=== PATIENT | female | born 1955 | race Caucasian/White ===

== ENCOUNTER 2024-02-21 00:46 | Emergency (ER) | payer MEDICAID ==
[~2024-02-21] VITALS: Ht 172.7 cm; Wt 63.5 kg
[2024-02-21] MEDS ORDERED: IV NS 0.9% 1,000 ML BAG IV ONE (01:00)
[2024-02-21 01:21] LABS: BASOPHILS # (AUTO) 0.1 K/uL (0.0-0.2); BASOPHILS % (AUTO) 0.4 % (0.0-2.0); EOSINOPHILS % (AUTO) 0.3 % (0.0-6.0); HEMATOCRIT 33 % (33-45); LYMPHOCYTES # (AUTO) 0.7 K/uL (0.8-4.8); LYMPHOCYTES % (AUTO) 4.3 % (20.0-44.0); MEAN CORPUSCULAR HEMOGLOBIN 33 PG (26.0-33.0); MEAN CORPUSCULAR HGB CONC 31 g/dl (31.0-36.0); MEAN CORPUSCULAR VOLUME 107 fL (82-100); MONOCYTES # (AUTO) 1.3 K/uL (0.1-1.30); MONOCYTES % (AUTO) 8.3 % (2.0-12.0); NEUTROPHILS # (AUTO) 13.6 K/uL (1.8-8.9); NEUTROPHILS % (AUTO) 86.7 % (43.0-81.0); PLATELET COUNT (AUTO) 355 K/uL (150-450); RED BLOOD CELL COUNT(AUTO) 3.04 MIL/uL (4.0-5.2); RED CELL DISTRIBUTION WIDTH 19.9 % (11.5-15.0); WHITE BLOOD COUNT (AUTO) 15.7 K/uL (4.3-11.0)
[2024-02-21 01:36] LABS: CALCIUM, SERUM 9.5 mg/dL (8.5-10.1); CARBON DIOXIDE 19 mmol/L (21-32); CHLORIDE 95 mmol/L (98-107); GLUCOSE 100 mg/dL (74-106); SODIUM SERUM 134 mmol/L (136-145)
[2024-02-21 01:51] LABS: ALANINE AMINOTRANSFERASE 91 U/L (12-78); ASPARTATE AMINOTRANSFERASE 204 U/L (15-37); BILIRUBIN,DIRECT 2.2 mg/dL (0.0-0.2); BILIRUBIN,TOTAL 3.2 mg/dL (0.2-1.0); NT-PRO BNP 4762 pg/mL (0-125); TOTAL PROTEIN, SERUM 7.3 g/dL (6.4-8.2)
[2024-02-21 02:00] LABS: ALKALINE PHOSPHATASE 2205 U/L (46-116); CREATININE 7.6 mg/dL (0.6-1.3); LIPASE 420 U/L (16-77); POTASSIUM 7.2 mmol/L (3.5-5.1); UREA NITROGEN, BLOOD 92 mg/dL (7-18)
[2024-02-21 02:02] VITALS: BP 79/29; TEMP 98; O2SAT 98
== END 2024-02-21 02:02 | disposition left against medical advice (07) ==
LOC: ER 01:18
DX: R53.1 Weakness (principal); R62.7 Adult failure to thrive; I10 Essential (primary) hypertension; E11.9 Type 2 diabetes mellitus without complications; Z68.21 Body mass index [BMI] 21.0-21.9, adult; Z85.118 Personal history of other malignant neoplasm of bronchus and lung
CPT/HCPCS: 36415; 80048-TC; 80076-TC; 83690-TC; 83880; 84484-TC; 85025-TC